=== PATIENT | female | born 1980 | race American Indian/Alaskan Native ===

== ENCOUNTER 2019-02-28 21:37 | Emergency (ER) | payer OTHER ==
[2019-03-01] MEDS ORDERED: IBUPROFEN PO ONE (01:12)
[2019-03-01] MEDS ORDERED: FLEXERIL PO ONE (01:12)
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
[2019-03-01 04:51] VITALS: BP 135/77
== END 2019-03-01 02:00 | disposition home or self-care (01) ==
LOC: ED 21:37
DX: S39.012A Strain of muscle, fascia and tendon of lower back, initial encounter (principal); V89.2XXA Person injured in unspecified motor-vehicle accident, traffic, initial encounter; Y93.89 Activity, other specified; Y92.410 Unspecified street and highway as the place of occurrence of the external cause; Y99.8 Other external cause status
CPT/HCPCS: 99282